=== PATIENT | female | born 1955 | race Caucasian/White ===

== ENCOUNTER 2023-06-24 03:46 | Observation (INO) | payer MEDICARE, SELFPAY ==
[2023-06-24] VITALS (111 sets, daily range): BP systolic 148–228; BP diastolic 66–130; PULSE 66–84; RESP 0–150; TEMP 36.7–36.9; O2SAT 93–100; BMI 44.3; BMI 45.2
--- NOTE | 2023-06-24 03:26 | ECG_ITS ---
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
--- NOTE | 2023-06-24 03:36 | CT_ITS ---
The [address] [address] Patient Name: NICHOLE HOWELL MRN: [id number] date: 1955 Sex: F Assigned Patient Location: ER Current Patient Location: Accession/Order Number: [id number] Exam Date: 06/24/2023 03:48 Report Date: 06/24/2023 04:07 At the request of: ROGELIO GLASGOW Procedure: CT head/brain wo con INDICATION: 67 years old; Female. Dizziness. TECHNIQUE: CT Head (ax/cor/sag reformats). Ionizing radiation dose reduced via iterative reconstruction/FBP blend and body size kV/mA adjustment. Comparison: None FINDINGS: POSTOPERATIVE CHANGES: None. BRAIN PARENCHYMA: No focal lesions. No mass effect. No midline shift or herniation. No intraparenchymal or extra-axial hemorrhage. Subtle low-density in the white matter without mass effect consistent with small vessel ischemic change. VENTRICLES/EXTRA-AXIAL SPACES: Normal for patient's age. SINUSES/MASTOIDS: The visualized sinuses are clear. Mastoid air cells are clear. MSK: No displaced or depressed calvarial fracture. OTHER: No hyperdense intraluminal thrombus. Vascular calcification is seen. CT/CT head/brain wo con IMPRESSION: 1. No acute intracranial abnormality. No hemorrhage or mass effect. 2. Subtle small vessel ischemic changes. 3. Basilar calcification. If there is concern for acute infarction, then further examination with MRI including diffusion imaging would be more sensitive. Electronically authenticated by: JUSTIN AREVALO Date: 06/24/2023 04:07
[2023-06-24 03:46] LABS: Basophils Percent Auto 0.6 % (0.2-2.0); Eosinophils Absolute Auto 0.2 10^3/uL (0.0-0.7); Eosinophils Percent Auto 3.4 % (0.9-7.0); Hematocrit 36.1 % (36.0-48.0); Hemoglobin 11.9 g/dL (12.0-16.0); Immature Granulocytes Abs Auto 0.02 10^3/uL (0.00-0.03); Immature Granulocytes Pct Auto 0.3 % (0.0-0.5); Lymphocytes Absolute Auto 2.7 10^3/uL (1.2-3.8); Lymphocytes Percent Auto 38.9 % (20.5-60.0); Mean Corpuscular Hemoglobin 29.8 pg (26.7-34.0); Mean Corpuscular Volume 90.3 fL (81.0-99.0); Mean Platelet Volume 10.3 fL (9.5-13.5); Monocytes Absolute Auto 0.6 10^3/uL (0.3-0.8); Monocytes Percent Auto 8.3 % (1.7-12.0); Neutrophils Absolute Auto 3.4 10^3/uL (1.4-6.5); Neutrophils Percent Auto 48.5 % (43.0-75.0); Platelet Count 225 10^3/uL (150-450); Red Cell Distribution Width 13.9 % (11.0-15.0)
--- NOTE | 2023-06-24 03:46 | ED.DIZZY1 ---
HPI - Dizziness General Chief Complaint: Dizziness Stated Complaint: LIGHTHEADED HEADACHE Time Seen by Provider: 06/24/23 03:47 Source: patient Mode of arrival: ambulance History of Present Illness HPI Narrative: Have history of A-fib as well as hypertension coming to us with a complaint of light nose that her up from sleep, the patient mentioned that she had no headache no chest pain no nausea no vomiting no other complaint during the day but she noted that at night she woke up with her heart racing She denies any symptoms during the day and she mentioned having dizziness while having those symptoms and she usually will record those symptoms by her Apple Watch Had no chest pain at any time Related Data Home Medications Medication Instructions Recorded Confirmed apixaban 5 mg tablet (Eliquis) 5 mg PO 06/24/23 clotrimazole-betamethasone 1 topical 06/24/23 %-0.05 % lotion losartan 100 mg tablet mg 06/24/23 magnesium oxide 400 mg (241.3 mg mg 06/24/23 magnesium) tablet metoprolol tartrate 25 mg tablet mg 06/24/23 naproxen 500 mg tablet mg 06/24/23 omega-3 acid ethyl esters 1 gram PO 06/24/23 capsule sotalol 120 mg tablet 120 mg 06/24/23 Allergies Allergy/AdvReac Type Severity Reaction Status Date / Time No Known Drug Allergies Allergy Verified 06/24/23 03:16 Review of Systems ROS Status of ROS 10 or more systems reviewed and unremarkable except as noted in history and below Exam Narrative Exam Narrative: Nurses notes and vital signs reviewed and patient is not hypoxic. General: Well-appearing and in no apparent distress. Skin: Warm, dry, no pallor noted. No rash. Head: Normocephalic, atraumatic. Neck: Supple, non-tender. Eye: Pupils are equal, round and EOMI. No scleral icterus. Ears, Nose, Mouth, and Throat: TM are clear, no nasal mucosal hypertrophy. Oral mucosa is moist, no posterior oropharynx erythema, uvula is mid-line Cardiovascular: Regular Rate and Rhythm without murmur, gallop or rub. Respiratory: No accessory muscle use or respiratory distress. Lungs are clear to auscultation, no wheezing, rales or rhonchi Chest Wall: no tenderness Back: No midline thoracic or lumbar vertebral tenderness. No CVA tenderness Musculoskeletal: normal ROM, no calf or popliteal tenderness, no lower extremity edema/swelling GI: Abdomen is soft, non-distended. Normal bowel sounds. No masses appreciated. No tenderness to palpation. No rebound, guarding, or rigidity noted. Neurological: A&O x4. No cranial nerve dysfunction observed. No truncal ataxia. Moves all extremities. Sensation intact. Psychiatric: Cooperative and interactive. Normal mood and affect. Constitutional Vital Signs, click to edit/add: Last Vital Signs Temp 98.1 F 06/24/23 03:12 Pulse 68 06/24/23 06:17 Resp 20 06/24/23 06:17 BP 158/70 H 06/24/23 06:17 Pulse Ox 96 06/24/23 06:17 O2 Del Method Room Air 06/24/23 06:17 Course Vital Signs Vital signs: Vital Signs Temperature 98.1 F 06/24/23 03:12 Pulse Rate 69 06/24/23 03:12 Respiratory Rate 19 06/24/23 03:12 Blood Pressure 167/83 H 06/24/23 03:12 Pulse Oximetry 99 06/24/23 03:12 Oxygen Delivery Method Room Air 06/24/23 03:12 Temperature 98.1 F 06/24/23 03:12 Pulse Rate 68 06/24/23 06:17 Respiratory Rate 20 06/24/23 06:17 Blood Pressure 158/70 H 06/24/23 06:17 Pulse Oximetry 96 06/24/23 06:17 Oxygen Delivery Method Room Air 06/24/23 06:17 MDM - Dizziness MDM Narrative Medical decision making narrative: EKG showing sinus rhythm with a heart rate of [address] elevation or depression The patient CBC and chemistry showed no acute significant pathology the first troponin was 12 repeated after 2 hours the patient troponin went to up to 40 Repeated EKG still showing the patient sinus rhythm with a heart rate of [address] elevation or depression The patient troponin result discussed with Dr. Guerra and he recommended the patient get the stress test as well as the observation in the hospital The patient last stress test was more than 7 years ago and it was negative The patient case discussed with Dr. Mcdaniel and he agreed with above-mentioned plan Lab Data Labs: Lab Results 06/24/23 06/24/23 Range/Units 03:20 05:09 WBC 7.0 (4.0-11.0) 10^3/uL RBC 4.00 L (4.20-5.40) 10^6/uL Hgb 11.9 L (12.0-16.0) g/dL Hct 36.1 (36.0-48.0) % MCV 90.3 (81.0-99.0) fL MCH 29.8 (26.7-34.0) pg MCHC 33.0 (29.9-35.2) g/dL RDW 13.9 (11.0-15.0) % Plt Count 225 (150-450) 10^3/uL MPV 10.3 (9.5-13.5) fL Neut % (Auto) 48.5 (43.0-75.0) % Lymph % (Auto) 38.9 (20.5-60.0) % Wilkin % (Auto) 8.3 (1.7-12.0) % Eos % (Auto) 3.4 (0.9-7.0) % Baso % (Auto) 0.6 (0.2-2.0) % Neut # (Auto) 3.4 (1.4-6.5) 10^3/uL Lymph # (Auto) 2.7 (1.2-3.8) 10^3/uL Wilkin # (Auto) 0.6 (0.3-0.8) 10^3/uL Eos # (Auto) 0.2 (0.0-0.7) 10^3/uL Baso # (Auto) 0.0 (0.0-0.1) 10^3/uL Abs Immat Gran (auto) 0.02 (0.00-0.03) 10^3/uL Imm/Tot Granulo (auto) 0.3 (0.0-0.5) % PT 10.3 (9.0-11.6) sec INR 0.97 Sodium 141 (136-145) mmol/L Potassium 4.4 (3.5-5.1) mmol/L Chloride 103 (98-107) mmol/L Carbon Dioxide 27.9 (21.0-32.0) mmol/L Anion Gap 14.5 BUN 15.0 (7.0-18.0) mg/dL Creatinine 0.91 (0.55-1.02) mg/dL Est GFR ( Amer) >60 (>=60) Est GFR (Non-Af Amer) >60 (>=60) BUN/Creatinine Ratio 16.5 Glucose 118 H (74-106) mg/dL Calcium 8.6 (8.5-10.1) mg/dL Magnesium 2.1 (1.8-2.4) mg/dL Total Bilirubin 0.4 (0.2-1.0) mg/dL AST 20 (15-37) U/L ALT 45 (14-59) U/L Alkaline Phosphatase 71 (46-116) U/L Troponin I High Sens 12.0 40.2 (4.0-51.3) pg/mL Total Protein 7.2 (6.4-8.2) g/dL Albumin 3.5 (3.4-5.0) g/dL Globulin 3.7 g/dL Albumin/Globulin Ratio 0.9 Discharge Plan Discharge Chief Complaint: Dizziness Clinical Impression: Dizziness, Elevated troponin Patient Disposition: Admitted As Inpatient Time of Disposition Decision: 06:33 Condition: Good
[2023-06-24 04:04] LABS: Alanine Aminotransferase 45 U/L (14-59); Albumin Globulin Ratio 0.9; Albumin Level 3.5 g/dL (3.4-5.0); Alkaline Phosphatase 71 U/L (46-116); Anion Gap 14.5; Aspartate Amino Transferase 20 U/L (15-37); BUN Creatinine Ratio 16.5; Bilirubin Total 0.4 mg/dL (0.2-1.0); Calcium 8.6 mg/dL (8.5-10.1); Carbon Dioxide 27.9 mmol/L (21.0-32.0); Chloride 103 mmol/L (98-107); Estimated GFR (African America >60 (>=60); Estimated GFR (Non-African Ame >60 (>=60); Globulin 3.7 g/dL; Glucose 118 mg/dL (74-106); Magnesium 2.1 mg/dL (1.8-2.4); Potassium 4.4 mmol/L (3.5-5.1); Sodium 141 mmol/L (136-145); Total Protein 7.2 g/dL (6.4-8.2)
[2023-06-24 04:18] LABS: INR 0.97; Prothrombin Time 10.3 sec (9.0-11.6)
[2023-06-24 05:58] LABS: Troponin I High Sensitivity 40.2 pg/mL (4.0-51.3)
--- NOTE | 2023-06-24 06:10 | ECG_ITS ---
The 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
[2023-06-24] MEDS: KETOROLAC TROMETHAMINE 30 MG/ML VIAL 15 MG IVP (06:30)
[2023-06-24] MEDS: NITROGLYCERIN 0.4 MG BOTTLE PO ×2 (06:30→09:01)
[2023-06-24] MEDS: ONDANSETRON PF 4 MG/2 ML VIAL IV (06:30)
--- NOTE | 2023-06-24 06:55 | CA_ITS ---
Patient: NICHOLE HOWELL Exam Date: 06/24/2023 : 1955 Gender:F Ordering : DR Mau Mcdaniel . Admission #: [id number] Family : Order #: [id number] CLICK HERE TO VIEW EXAM ECHOCARDIOGRAM REPORT PROCEDURE: CA ECHO DOPPLER COMPLETE INDICATIONS: Dyspnea COMPARISON: None. DESCRIPTION: COMPLETE ECHOCARDIOGRAM Real-time transthoracic echocardiography with 2D, M-mode, spectral and color flow Doppler performed. QUALITY: Technical quality was good. LEFT VENTRICLE: Normal chamber size. Mild concentric left ventricular hypertrophy. LV EF: Global left ventricular systolic function is hyperdynamic. Calculated left ventricular ejection fraction is 70%. DIASTOLIC: Normal diastolic function. ATRIAL SEPTUM: Inadequately seen. LEFT ATRIUM: Mild dilatation. RIGHT ATRIUM: Mild dilatation. RIGHT VENTRICLE: Normal chamber size. Normal right ventricular systolic function. TRICUSPID VALVE: Normal mobility and thickness. No stenosis with trivial regurgitation. No evidence of pulmonary hypertension. RVSP 34mmHg MITRAL VALVE: Normal mobility and thickness. No evidence of mitral valve stenosis. There is no mitral annular calcification. Trivial mitral regurgitation. AORTIC VALVE: Normal trileaflet appearance. No visible sclerosis. Normal leaflet mobility. No evidence of aortic valve stenosis. No aortic regurgitation. AORTIC ROOT: Normal diameter and appearance. PULMONIC VALVE: Normal thickness and mobility. No stenosis. Mild regurgitation. PERICARDIUM: Anterior free space; trivial effusion versus fat pad. IVC: Not well visualized. CONCLUSION: 1. Global left ventricular systolic function is hyperdynamic; visually estimated ejection fraction is 65 to 70% 2. Mild left ventricular hypertrophy 3. Normal diastolic function 4. Biatrial enlargement 5. The right ventricle is normal in size and systolic function 6. Mild pulmonic regurgitation 7. Anterior free space; trivial effusion versus fat Adult Echocardiography Procedure Report Left Ventricle LVEDD (3.7 - 5.6 cm): 4.21 cm LVESD (2.2 - 4.0 cm): 2.99 cm LVIVS thickness (0.6 - 1.2 cm): 1.09 cm LVPW thickness (0.5 - 1.0 cm): 1.12 cm e': 0.10 m/s E - e': 7.40 LVOT Max Gradient: 4.31 mm[Hg] LVOT Area (cm2): 1.04 m/s Peak Velocity (LVOT): 1.04 m/s Mean Velocity (LVOT): 0.70 m/s LVOT Diameter 2.02 cm Left Ventricular Ejection Fraction: 70.15 % Left Atrium LA Volume Index (2D A2C): 34.95 ml/m2 Left Atrium Systolic Dimension: 3.31 cm Mitral Valve MV E to A Ratio: 1.10, 1.02 Mitral Valve A-Wave Peak Velocity: 0.70 m/s Mitral Valve E-Wave Peak Velocity: 0.74 m/s Right Ventricle RV Internal Diastolic Dimension: 3.39 cm Aorta AO Root Diam: 2.98 cm Ascending Ao Diam: 2.69 cm Aortic Valve AoV Area (Peak Abe): 2.14 cm2, 2.14 cm2 AoV Area (VTI): 2.44 cm2, 2.44 cm2 Peak Velocity(Antegrade Flow): 1.56 m/s Peak Gradient(Antegrade Flow): 9.71 mm[Hg] Mean Velocity(Antegrade Flow): 1.02 m/s Mean Gradient(Antegrade Flow): 4.81 mm[Hg] Velocity Time Integral: 31.30 cm Tricuspid Valve Peak Velocity (Regurgitant Flow): 1.57 m/s, 1.60 m/s, 2.82 m/s Pulmonic Valve Mean Gradient: 3.41 mm[Hg], 3.52 mm[Hg] Mean Velocity: 0.86 m/s, 0.87 m/s Peak Velocity: 1.29 m/s Peak Gradient: 6.52 mm[Hg], 6.89 mm[Hg] Right Atrium Right Atrium Systolic Pressure: 64.81 ml, 64.81 ml Dictated by: Fer Leal M.D. on 06/25/2023 at 09:45 Approved by: Fer Leal M.D. on 06/25/2023 at 09:49
--- NOTE | 2023-06-24 06:55 | PC.NURSE ---
Report to [facility] [employer] [facility].
[2023-06-24 08:26] LABS: Troponin I High Sensitivity 42.3 pg/mL (4.0-51.3)
--- NOTE | 2023-06-24 08:38 | CM.NOTE ---
Rounds made with Dr. Mcdaniel, pt will have stress test today. Possible discharge this afternoon based on results of testing.
--- NOTE | 2023-06-24 08:43 | ECG_ITS ---
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1955 Requested By: YARED JAMES Order Number: [id number] Reading MD: YARED JAMES Measurements Intervals [place] Rate: 70 P: 52 MD: 166 QRS: -12 QRSD: 96 T: -4 QT: 409 QTc: 441 Interpretive Statements SINUS RHYTHM Non-Specific T wave inversion in III LOW QRS VOLTAGE IN PRECORDIAL LEADS [QRS DEFLECTION < 1.0 mV IN CHEST LEADS] MINIMAL VOLTAGE CRITERIA FOR LVH, CONSIDER NORMAL VARIANT [MEETS CRITERIA IN ONE OF: R(aVL), S(V1), R(V5), R(V5/V6)+S(V1)] POSSIBLE ANTERIOR MYOCARDIAL INFARCTION [30 ms Q WAVE IN V3/V4, OR R < 0.2 mV IN V4], PROBABLY OLD Compared to ECG 06/24/2023 06:16:10 Low QRS voltage now present Myocardial infarct finding now present T-wave abnormality no longer present Electronically Signed On 06-25-2023 5:56:46 EDT by YARED JAMES
--- NOTE | 2023-06-24 09:09 | P.HP_ITS ---
H&P: HPI History of Present Illness Chief complaint: LIGHTHEADED HEADACHE/DIZZINESS/ELEVATED TROPONIN Narrative: Patient was awakened with acute onset of chest heaviness. She does have a history of atrial fibrillation. She felt that that was activated as well. The episode lasted a few minutes. She called 911 and presented to the emergency room. In the emergency room was in normal sinus rhythm. Trended troponins went up 30 points from the first of the second case was discussed with cardiology who recommended observation admission for cardiac evaluation. Patient was admitted for stress testing and echocardiogram. Patient has had similar episodes but short lasting within the last several weeks. She did not discuss these with her apprentice technician. Review of Systems ROS Status of ROS 10 or more systems reviewed and unremarkable except as noted in history and below [facility] Medical History (Updated 06/24/23 @ 09:12 by Mau Mcdaniel MD) Surgical History (Updated 06/24/23 @ 07:27 by Fiordaliza Dobbs) Family History (Updated 06/24/23 @ 07:29 by Fiordaliza Dobbs) Mother Family history of myocardial infarction Family history of hypertension Father Family history of hypertension Brother Family history of hypertension Meds Home Medications and Allergies Home Medications Medication Instructions Recorded Confirmed Type apixaban 5 mg tablet (Eliquis) 5 mg PO 06/24/23 History clotrimazole-betamethasone 1 topical 06/24/23 History %-0.05 % lotion losartan 100 mg tablet mg 06/24/23 History magnesium oxide 400 mg (241.3 mg mg 06/24/23 History magnesium) tablet metoprolol tartrate 25 mg tablet mg 06/24/23 History naproxen 500 mg tablet mg 06/24/23 History omega-3 acid ethyl esters 1 gram PO 06/24/23 History capsule sotalol 120 mg tablet 120 mg 06/24/23 History Allergies Allergy/AdvReac Type Severity Reaction Status Date / Time No Known Drug Allergies Allergy Verified 06/24/23 03:16 Exam Constitutional Vital Signs, click to edit/add: Last Vital Signs Temp 98.0 F 06/24/23 07:35 Pulse 73 06/24/23 08:08 Resp 16 06/24/23 07:35 BP 164/86 H 06/24/23 09:05 Pulse Ox 97 06/24/23 07:35 O2 Del Method Room Air 06/24/23 07:35 Documenting provider has reviewed patient's vital signs: yes Common normals: no apparent distress Chest Common normals: inspection of chest normal Respiratory Common normals: normal respiratory effort, no retractions and clear to auscultation bilaterally Cardio Common normals: regular rate and no murmurs GI Common normals: Normal to inspection, nondistended, normoactive bowel sounds present Extremity Common normals: normal to inspection, full ROM and normal capillary refill Neuro Common normals: oriented x3 and CN's II-XII intact bilaterally Results Labs Labs: Short CBC 06/24/23 Range/Units 03:20 WBC 7.0 (4.0-11.0) 10^3/uL Hgb 11.9 L (12.0-16.0) g/dL Hct 36.1 (36.0-48.0) % Plt Count 225 (150-450) 10^3/uL BMP 06/24/23 03:20 Sodium 141 Potassium 4.4 Chloride 103 Carbon Dioxide 27.9 BUN 15.0 Creatinine 0.91 Glucose 118 H Calcium 8.6 Liver Function 06/24/23 Range/Units 03:20 Total Bilirubin 0.4 (0.2-1.0) mg/dL AST 20 (15-37) U/L ALT 45 (14-59) U/L Alkaline Phosphatase 71 (46-116) U/L Albumin 3.5 (3.4-5.0) g/dL Assessment and Plan Assessment and Plan (1) Afib: (2) Sleep apnea: (3) Chest pain: (4) Hypertension: Plan Uncontrolled hypertension with increasing episodes of chest pressure with activated atrial fibrillation. She has been in and out of atrial fibrillation. She is currently anticoagulated. With Eliquis. Presented to the emergency room with chest pressure that was more severe than previous and lasted slightly longer than previous. By the time she presented the emergency room the chest pressure had resolved. Her atrial fibrillation has also resolved. Her troponins were trended and from 10-40, with the increase of 30 points was recommended observation with cardiac evaluation with stress testing and echocardiogram from cardiology's. If cardiac work-up all negative possible discharge later today. Encouraged increased visit with apprentice technician her next visit 4 months from now Sleep apnea-if she is going to need hospitalization longer than I would recommend she bring her home machine. Uncontrolled hypertension-we will review medications likely increase overall
[2023-06-24] MEDS: HYDRALAZINE HCL 20 MG/ML VIAL 10 MG IVP ×2 (10:40→19:28)
--- NOTE | 2023-06-24 12:33 | P.STRESS_ITS ---
Stress Test Stress Test Allergies Allergy/AdvReac Type Severity Reaction Status Date / Time No Known Drug Allergies Allergy Verified 06/24/23 03:16 Requesting physician: Mau Mcdaniel Procedure: Exercise stress test General Information: Reason for Stress Test: Chest pain Cardiac History and Risk Factors: History of afib & hypertension. Mother had [place]. Resting 12 - Lead Electrocardiogram: Rate & rhythm: Normal at a rate of 77. [place]: Normal T-waves: Inverted in III ST-segments: Normal orientation This EKG is essentially unchanged from EKG obtained earlier this morning @ 03:13 I did find that an additional EKG was done ~2 minutes before the resting EKG which noted the patient developed bradycardia with up to 2 second pauses along with a couplet. Stress Test: Protocol: Ishan protocol was followed. Exercise capacity: Poor exercise capacity. Total exercise time of 2 minutes 3 seconds reached Ishan stage 1 at 1.7MPH, 10% grade, & 4.6 METs. Blood pressure: Initial: 170/96, Maximum: 208/96, Recovery: 164/92 Rate & rhythm: Patient remained in sinus rhythm during the exercise prortion.? The maximum heart rate was 131, which was 85% of the maximum predicted heart rate 154. ~20 seconds into recovery, there was a period of SVT/afib with RVR into the 160s, and a second episode @ ~1:26 into recovery with maximum rate 181. The patient spontaneously converted to NSR without intervention on our part. PVCs with [address]-segments & T-waves: There were no T-wave changes and no ST-segment changes when compared to the baseline EKG. Patient response/symptoms: There were no symptoms similar to the chief complaint. She did complain of dyspnea. Interpretation: This is a normal exercise test based on lack of T wave or ST segment changes. No reproducible chest pain. She did have 2 episodes of afib with RVR during the recovery phase and episode of bradycardia with a couplet prior to initiation of the study. Dixon Treadmill Score is 2 which is a moderate risk category. Clinical correlation is required.
[2023-06-24] MEDS: ACETAMINOPHEN 500 MG TABLET 1000 MG PO ×2 (12:57→19:33)
[2023-06-24] MEDS: SOTALOL HCL 80 MG TABLET 120 MG PO (15:45)
[2023-06-24] MEDS: PANTOPRAZOLE SODIUM 40 MG VIAL IV (15:45)
== END 2023-06-24 20:14 | disposition short-term general hospital (02) ==
LOC: ER 06:48 → MS 12:33 → ICU 15:47
PROVIDERS: Admitting Provider Family Medicine; Emergency Provider Emergency Medicine; PCP Family Medicine; Visit Provider Family Medicine
DX: R07.89 Other chest pain (principal); I48.91 Unspecified atrial fibrillation; I10 Essential (primary) hypertension; R77.8 Other specified abnormalities of plasma proteins; Z79.01 Long term (current) use of anticoagulants
CPT/HCPCS: 36415; 70450; 80053; 83735; 84484; 85025; 85610; 93005; 93017; 93306; 94761; 96374; 96375; 96376; 99285; G0378

== ENCOUNTER 2023-08-03 09:38 | Emergency (ER) | payer MEDICARE, SELFPAY ==
[2023-08-03 09:40] VITALS: BP 136/79; PULSE 103; RESP 16; TEMP 36.6; O2SAT 98; BMI 24.6
--- NOTE | 2023-08-03 09:57 | ECG_ITS ---
The 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1955 Requested By: Order Number: [id number] Reading MD: YARED JAMES Measurements Intervals [place] Rate: 95 P: -86548 IA: -53120 QRS: -7 QRSD: 90 T: 0 QT: 354 QTc: 407 Interpretive Statements 1210 Atrial fibrillation [address] depression, probably digitalis effect [address] & Twave abnormality, probably digitalis effect 9150 abnormal ECG Compared to ECG 06/24/2023 09:50:09 ST (T wave) deviation now present Sinus rhythm no longer present T-wave abnormality no longer present Myocardial infarct finding no longer present Electronically Signed On 08-05-2023 5:28:09 EDT by YARED JAMES
--- NOTE | 2023-08-03 09:57 | XR_ITS ---
The [address] [address] Patient Name: NICHOLE HOWELL MRN: [id number] date: 1955 Sex: F Assigned Patient Location: ER Current Patient Location: ED.MAIN Accession/Order Number: [id number] Exam Date: 08/03/2023 10:10 Report Date: 08/03/2023 10:47 At the request of: LIVAN CAT Procedure: XR chest 1V EXAMINATION: XR chest 1V HISTORY: tachycardia , atrial fibrillation COMPARISON: No relevant comparison available. FINDINGS: LUNGS: No significant pulmonary parenchymal abnormalities. VASCULATURE: No increased pulmonary vasculature. PLEURA: No pneumothorax, effusion, or pleural thickening. CARDIAC: No cardiomegaly or cardiac silhouette abnormality. MEDIASTINUM: No visible mass or adenopathy. BONES: No fracture or visible bone lesion. OTHER: Negative. XR/XR chest 1V IMPRESSION: 1. No acute cardiopulmonary process. Electronically authenticated by: MIGUEL PRINCE Date: 08/03/2023 10:47
[2023-08-03] MEDS: 0.9 % SODIUM CHLORIDE 1,000 ML 999 ML IV (10:10)
[2023-08-03 10:26] LABS: Basophils Percent Auto 0.8 % (0.2-2.0); Eosinophils Absolute Auto 0.1 10^3/uL (0.0-0.7); Eosinophils Percent Auto 2.1 % (0.9-7.0); Hematocrit 40.5 % (36.0-48.0); Hemoglobin 13.6 g/dL (12.0-16.0); Immature Granulocytes Abs Auto 0.02 10^3/uL (0.00-0.03); Immature Granulocytes Pct Auto 0.4 % (0.0-0.5); Lymphocytes Percent Auto 41.9 % (20.5-60.0); Mean Corpuscular HGB Conc 33.6 g/dL (29.9-35.2); Mean Corpuscular Hemoglobin 29.6 pg (26.7-34.0); Mean Platelet Volume 10.7 fL (9.5-13.5); Monocytes Absolute Auto 0.5 10^3/uL (0.3-0.8); Monocytes Percent Auto 9.4 % (1.7-12.0); Neutrophils Absolute Auto 2.2 10^3/uL (1.4-6.5); Neutrophils Percent Auto 45.4 % (43.0-75.0); Platelet Count 256 10^3/uL (150-450); Red Cell Distribution Width 13.4 % (11.0-15.0); White Blood Count 4.8 10^3/uL (4.0-11.0)
--- NOTE | 2023-08-03 10:38 | ED.ARRPALP1 ---
HPI - Arrhythmia/Palpitations General Chief Complaint: Arrhythmia/Palpitations Stated Complaint: AFIB Time Seen by Provider: 08/03/23 09:40 Source: patient Mode of arrival: ambulance Limitations: no limitations History of Present Illness HPI narrative: Patient woke up feeling dizzy. She has atrial fibrillation and has been going in and out of AFib for the last 6 weeks. She checked her HR at home and it was 115bpm. EMS reported HR 140s and gave 10mg Cardizem IV. Now her HR has improved. 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 Because of the dizziness this morning, she did not take any of her home meds. No associated chest pain or shortness of breath. No recent injury, illness, fever, chills, vomiting or diarrhea. She told me that she has been aggressively cutting down her calorie intake daily and has lost almost 20 pounds in 5 weeks. Related Data Home Medications Medication Instructions Recorded Confirmed apixaban 5 mg tablet (Eliquis) 5 mg PO BID 06/24/23 08/03/23 calcium carbonate 500 mg calcium 500 mg PO DAILY 06/24/23 08/03/23 (1,250 mg) chewable tablet (Calcium 500) cetirizine 10 mg tablet (24Hour 10 mg PO DAILY 06/24/23 08/03/23 Allergy) clotrimazole-betamethasone 1 1 applic topical BID PRN irritated 06/24/23 %-0.05 % lotion area esomeprazole magnesium 20 mg 40 mg PO DAILY 06/24/23 08/03/23 capsule,delayed release (Nexium) lutein 10 mg tablet 10 mg PO DAILY 06/24/23 08/03/23 magnesium oxide 400 mg (241.3 mg 400 mg PO BID 06/24/23 08/03/23 magnesium) tablet metoprolol tartrate 25 mg tablet 25 mg PO DAILY PRN PALPITATIONS 06/24/23 08/03/23 naproxen 500 mg tablet 500 mg PO .QOD PRN pain 06/24/23 06/24/23 omega-3 acid ethyl esters 1 gram 2 cap PO BID 06/24/23 08/03/23 capsule sotalol 120 mg tablet 120 mg PO .COMPLEX 06/24/23 08/03/23 amlodipine 2.5 mg tablet 2.5 mg PO DAILY 08/03/23 08/03/23 isosorbide mononitrate 30 mg 30 mg PO BEDTIME 08/03/23 08/03/23 tablet,extended release 24 hr triamterene 37.5 1 tab PO DAILY 08/03/23 08/03/23 mg-hydrochlorothiazide 25 mg tablet Allergies Allergy/AdvReac Type Severity Reaction Status Date / Time No Known Drug Allergies Allergy Verified 06/24/23 03:16 [facility] Medical History (Updated 08/03/23 @ 11:17 by Livan Cat) Afib ?I48.91 - Unspecified atrial fibrillation (ICD-10) Sleep apnea ?G47.30 - Sleep apnea, unspecified (ICD-10) Surgical History (Updated 06/24/23 @ 07:27 by Fiodraliza Dobbs) H/O cataract removal with insertion of prosthetic lens ?Z98.49 - Cataract extraction status, unspecified eye (ICD-10) ?Z96.1 - Presence of intraocular lens (ICD-10) S/P ablation of atrial fibrillation ?Z98.890 - Other specified postprocedural states (ICD-10) ?Z86.79 - Personal history of other diseases of the circulatory system (ICD-10) Family History (Updated 06/24/23 @ 07:29 by Fiordaliza Dobbs) Mother Family history of myocardial infarction Family history of hypertension Father Family history of hypertension Brother Family history of hypertension Social History Smoking status: Never smoker Exam Narrative Exam Narrative: Nurses notes and vital signs reviewed and patient is not hypoxic. afebrile General: Well-appearing and in no apparent distress. Skin: Warm, dry, no pallor noted. Eye: Pupils are equal, round and EOMI. No scleral icterus. Cardiovascular: Rate controlled atrial fibrillation without murmur, gallop or rub. Respiratory: No accessory muscle use or respiratory distress. Lungs are clear to auscultation, no wheezing, rales or rhonchi Musculoskeletal: normal ROM, no calf or popliteal tenderness, no lower extremity edema/swelling GI: Abdomen is soft, non-distended. Normal bowel sounds. No tenderness to palpation. No rebound, guarding, or rigidity noted. Neurological: A&O x4. No cranial nerve dysfunction observed. No truncal ataxia. Moves all extremities. Sensation intact. Psychiatric: Cooperative and interactive. Normal mood and affect. Constitutional Vital Signs, click to edit/add: Last Vital Signs Temp 97.8 F 08/03/23 09:40 Pulse 103 H 08/03/23 09:40 Resp 16 08/03/23 09:40 BP 136/79 08/03/23 09:40 Pulse Ox 98 08/03/23 09:40 O2 Del Method Room Air 08/03/23 09:40 Course Vital Signs Vital signs: Vital Signs Temperature 97.8 F 08/03/23 09:40 Pulse Rate 103 H 08/03/23 09:40 Respiratory Rate 16 08/03/23 09:40 Blood Pressure 136/79 08/03/23 09:40 Pulse Oximetry 98 08/03/23 09:40 Oxygen Delivery Method Room Air 08/03/23 09:40 Temperature 97.8 F 08/03/23 09:40 Pulse Rate 103 H 08/03/23 09:40 Respiratory Rate 16 08/03/23 09:40 Blood Pressure 136/79 08/03/23 09:40 Pulse Oximetry 98 08/03/23 09:40 Oxygen Delivery Method Room Air 08/03/23 09:40 MDM - Arrhythmia/Palpitations MDM Narrative Medical decision making narrative: Patient was placed on cafeteria monitor and EKG obtained. Blood drawn and sent for evaluation. Chest x-ray obtained. Blood tests were unremarkable with the exception of mildly elevated BUN and creatinine at 19/1.05. CBC, electrolytes, troponin, BNP and lactate were all negative. Blood cultures were obtained to the patient's tachycardia and the result is pending. Chest x-ray unremarkable per radiologist. Patient's dizziness abided after her HR normalized. She remains in rate controlled atrial fibrillation for most of her time in the ED. She converted to NSR spontaneously as her results were finalized. She takes Eliquis daily. She was informed of results, given reassurance and was discharged home with recommendations to take her meds as scheduled. We discussed appropriate and safe was to reduce weight. 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 ED return if worse. Lab Data Attestation: I reviewed the patient's lab results. Labs: Lab Results 08/03/23 Range/Units 10:10 WBC 4.8 (4.0-11.0) 10^3/uL RBC 4.60 (4.20-5.40) 10^6/uL Hgb 13.6 (12.0-16.0) g/dL Hct 40.5 (36.0-48.0) % MCV 88.0 (81.0-99.0) fL MCH 29.6 (26.7-34.0) pg MCHC 33.6 (29.9-35.2) g/dL RDW 13.4 (11.0-15.0) % Plt Count 256 (150-450) 10^3/uL MPV 10.7 (9.5-13.5) fL Neut % (Auto) 45.4 (43.0-75.0) % Lymph % (Auto) 41.9 (20.5-60.0) % [place] % (Auto) 9.4 (1.7-12.0) % Eos % (Auto) 2.1 (0.9-7.0) % Baso % (Auto) 0.8 (0.2-2.0) % Neut # (Auto) 2.2 (1.4-6.5) 10^3/uL Lymph # (Auto) 2.0 (1.2-3.8) 10^3/uL [place] # (Auto) 0.5 (0.3-0.8) 10^3/uL Eos # (Auto) 0.1 (0.0-0.7) 10^3/uL Baso # (Auto) 0.0 (0.0-0.1) 10^3/uL Abs Immat Gran (auto) 0.02 (0.00-0.03) 10^3/uL Imm/Tot Granulo (auto) 0.4 (0.0-0.5) % Sodium 138 (136-145) mmol/L Potassium 3.8 (3.5-5.1) mmol/L Chloride 101 (98-107) mmol/L Carbon Dioxide 27.2 (21.0-32.0) mmol/L Anion Gap 13.6 BUN 19.0 H (7.0-18.0) mg/dL Creatinine 1.05 H (0.55-1.02) mg/dL Est GFR ( Amer) >60 (>=60) Est GFR (Non-Af Amer) 52 L (>=60) BUN/Creatinine Ratio 18.1 Glucose 135 H (74-106) mg/dL Lactate 1.7 (0.4-2.0) mmol/L Calcium 9.0 (8.5-10.1) mg/dL Magnesium 2.1 (1.8-2.4) mg/dL Troponin I High Sens 5.2 (4.0-51.3) pg/mL NT-Pro-B Natriuret Pep 250.0 (<=900.0) pg/mL Imaging Data Chest x-ray: Radiologist's impression: Patient Name: NICHOLE HOWELL MRN: [id number] date: 1955 Sex: F Assigned Patient Location: ER Current Patient Location: ED.MAIN Accession/Order Number: [id number] Exam Date: 08/03/2023 10:10 Report Date: 08/03/2023 10:47 At the request of: LIVAN CAT Procedure: XR chest 1V EXAMINATION: XR chest 1V HISTORY: tachycardia , atrial fibrillation COMPARISON: No relevant comparison available. FINDINGS: LUNGS: No significant pulmonary parenchymal abnormalities. VASCULATURE: No increased pulmonary vasculature. PLEURA: No pneumothorax, effusion, or pleural thickening. CARDIAC: No cardiomegaly or cardiac silhouette abnormality. MEDIASTINUM: No visible mass or adenopathy. BONES: No fracture or visible bone lesion. OTHER: Negative. IMPRESSION: 1. No acute cardiopulmonary process. Electronically authenticated by: MIGUEL PRINCE Date: 08/03/2023 10:47 ECG Data Interpretation: EKG interpretation: Emergency Department physician interpretation. Atrial fibrillation at 95bpm. Non-specific ST changes, no ST segment elevation or depression. REPEAT EKG @ 1115 - EKG interpretation: Emergency Department physician interpretation. Normal sinus rhythm at 58bpm. low QRS in chest leads, normal intervals and no ST segment elevation or depression. Discharge Plan Discharge Chief Complaint: Arrhythmia/Palpitations Clinical Impression: Atrial fibrillation Patient Disposition: Home, Self-Care Time of Disposition Decision: 11:17 Prescriptions / Home Meds: No Action clotrimazole-betamethasone 1-0.05 % lotion 1 applic TOPICAL BID PRN (Reason: irritated area) Patient Comments: LAST FILLED 08/01 sotalol 120 mg tablet 120 mg PO .COMPLEX Patient Comments: 1 in the AM, 1/2 in afternoon, 1 in evening Rx Instructions: 120 mg orally 1 whole tablet morning and night. Half tablet in the afternoon; magnesium oxide 400 mg (241.3 mg magnesium) tablet 400 mg PO BID naproxen 500 mg tablet 500 mg PO .QOD PRN (Reason: pain) metoprolol tartrate 25 mg tablet 25 mg PO DAILY PRN (Reason: PALPITATIONS) Rx Instructions: NEEDED FOR PALPITATIONS LASTING LONGER THAN 15 MINUTES omega-3 acid ethyl esters 1 gram capsule 2 cap PO BID Eliquis 5 mg tablet 5 mg PO BID calcium carbonate [Calcium 500] 500 mg calcium (1,250 mg) tablet,chewable 500 mg PO DAILY cetirizine [24Hour Allergy] 10 mg tablet 10 mg PO DAILY esomeprazole magnesium [Nexium] 20 mg capsule,delayed release(DR/EC) 40 mg PO DAILY lutein 10 mg tablet 10 mg PO DAILY Rx Instructions: give with meal/snack isosorbide mononitrate 30 mg tablet extended release 24 hr 30 mg PO BEDTIME amlodipine 2.5 mg tablet 2.5 mg PO DAILY triamterene-hydrochlorothiazid 37.5-25 mg tablet 1 tab PO DAILY Instructions: A-fib (Atrial Fibrillation) (ED) Stand Alone Forms: Portal Instructions Referrals: PURA TSAI [Primary Care Provider] - 1 week
[2023-08-03 10:51] LABS: Lactate/Lactic Acid 1.7 mmol/L (0.4-2.0)
[2023-08-03 10:56] LABS: Anion Gap 13.6; BUN Creatinine Ratio 18.1; Carbon Dioxide 27.2 mmol/L (21.0-32.0); Chloride 101 mmol/L (98-107); Estimated GFR (African America >60 (>=60); Estimated GFR (Non-African Ame 52 (>=60); Glucose 135 mg/dL (74-106); Magnesium 2.1 mg/dL (1.8-2.4); Potassium 3.8 mmol/L (3.5-5.1); Sodium 138 mmol/L (136-145); Troponin I High Sensitivity 5.2 pg/mL (4.0-51.3)
--- NOTE | 2023-08-03 11:18 | ECG_ITS ---
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
== END 2023-08-03 11:32 | disposition home or self-care (01) ==
PROVIDERS: Emergency Provider Emergency Medicine; PCP Family Medicine
DX: I48.91 Unspecified atrial fibrillation (principal); Z79.01 Long term (current) use of anticoagulants; Z79.899 Other long term (current) drug therapy; G47.30 Sleep apnea, unspecified; Z98.49 Cataract extraction status, unspecified eye; Z96.1 Presence of intraocular lens; Z98.890 Other specified postprocedural states
CPT/HCPCS: 36415; 71045; 80048; 83605; 83735; 83880; 84484; 85025; 87040; 93005; 99285

== ENCOUNTER 2024-03-21 10:57 | Emergency (ER) | payer OTHER, MEDICARE, SELFPAY ==
[2024-03-21 11:03] VITALS: BP 175/86; PULSE 59; TEMP 36.6; O2SAT 96; BMI 41.2
[2024-03-21 11:16] VITALS: O2SAT 98
--- NOTE | 2024-03-21 11:37 | CT_ITS ---
The [address] [address] Patient Name: NICHOLE HOWELL MRN: [id number] date: 1955 Sex: F Assigned Patient Location: ER Current Patient Location: ER Accession/Order Number: [id number] Exam Date: 03/21/2024 12:27 Report Date: 03/21/2024 12:52 At the request of: NAIF DEONDRE Procedure: CT head/brain wo con EXAM: CT head/brain wo con HISTORY: trauma COMPARISON: 06/24/2023 TECHNIQUE: Multiple thin computed tomograms of the head were obtained, with sagittal and coronal reconstructions. Radiation reduction technique and algorithms were utilized in the study. FINDINGS: The ventricles are borderline enlarged, the lateral ventricles are symmetric and the third ventricle is in the midline. The sylvian fissures and cortical sulci are unremarkable. There is no evidence of an intracranial hemorrhage, mass lesion or apparent acute infarct. 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 Slight patchy diminished attenuation is seen in the deep white matter surrounding the ventricles. The cerebellum and visualized brainstem are intact. The visualized paranasal sinuses are clear. The middle ears are aerated. Soft tissue is seen in each external auditory canal. The mastoid sinuses are clear. There is no apparent acute skull fracture. CT/CT head/brain wo con IMPRESSION: There is no evidence of an intracranial hemorrhage, mass lesion or apparent acute infarct. Mild or early atrophy is present. Slight patchy diminished attenuation in the periventricular deep white matter indicates small vessel ischemic change. The paranasal sinuses are clear. The soft tissues seen in each external auditory canal are presumably cerumen, and direct visualization is recommended to verify this impression. There is no evidence of a skull fracture. Overall, there've been no significant interval changes. Electronically authenticated by: GONZALO WYNNE Date: 03/21/2024 12:52
--- NOTE | 2024-03-21 11:38 | XR_ITS ---
[address] [address] Patient Name: NICHOLE HOWELL MRN: [id number] date: 1955 Sex: F Assigned Patient Location: ER Current Patient Location: ER Accession/Order Number: [id number] Exam Date: 03/21/2024 12:33 Report Date: 03/21/2024 12:50 At the request of: NAIF MENDOSA Procedure: XR shoulder RT min 2V PROCEDURE: XR shoulder RT min 2V COMPARISON: None. HISTORY: fall FINDINGS: BONES:No acute fracture or dislocation. Moderate degenerative changes of the glenohumeral and acromioclavicular joints with marginal osteophyte formation SOFT TISSUES:Negative. No visible soft tissue swelling. EFFUSION:None visible. OTHER: Negative. XR/XR shoulder RT min 2V IMPRESSION: Osteoarthritis Electronically authenticated by: ELISABET ZALDIVAR Date: 03/21/2024 12:50
[2024-03-21] MEDS: ACETAMINOPHEN 500 MG TABLET PO (11:41)
--- NOTE | 2024-03-21 20:14 | ED_ITS ---
HPI HPI - General Adult General Chief complaint: Fall Stated complaint: FALL Time Seen by Provider: 03/21/24 11:37 Source: patient Mode of arrival: walk-in Limitations: no limitations History of Present Illness HPI narrative: Patient is a 68-year-old female who is presenting to the ER after a injury and a mechanical fall.Patient says that she tripped on uneven sidewalk, falling forward.Patient tried to catch herself with her hands, she has minimal abrasions to the palms of bilateral hands.Patient hit her lower chin on the cement as well, she has some superficial abrasions to her chin.Patient is on Eliquis. Patient has minimal headache. No neck pain. She is also having right mid humerus pain.No right shoulder pain, no right elbow pain. She is right-hand dominant. Daughter Is at bedside.No chest pain, shortness of breath, back pain, abdominal pain, nausea or vomiting. All systems are negative except as noted/marked. All systems reviewed and otherwise negative. Nurses note and vital signs reviewed and patient is not hypoxic. General: The patient appears well and in no apparent distress. Patient is resting comfortably on cart. Patient is not toxic, lethargic, or listless Skin: Warm, dry, no pallor noted. There is no rash noted. No petechiae, purpura. Head: Normocephalic, Minimal abrasions to the cheek. Patient has no dental pain to the upper and lower teeth.No midline or paracervical tenderness to palpation. Full range of motion Of cervical spine no difficulty. Eye: Normal conjunctiva, no drainage, EOMI. PERRL Ears, Nose, Mouth, and Throat: oral mucosa is moist. Nares patent. Mouth without vesicles. Cardiovascular: Regular Rate and Rhythm, no murmur, gallop, rub, No tenderness to palpation to bilateral anterior, lateral, posterior Chest wall Respiratory: Patient is in no distress, no accessory muscle use, lungs are clear to auscultation, no wheezing, rales or rhonchi Back: non-tender, no CVA tenderness bilaterally to percussion. No CT LS midline pain GI: Obese, no tenderness to palpation, no masses appreciated. No rebound, guarding, or rigidity noted. No distention Musculoskeletal: Patient has full range of motion of all of the extremities Except to the right upper extremity.Patient has moderate tenderness palpation to the mid humerus just by squeezing the soft tissue and muscle tissue.Patient has no tenderness to palpation to the right clavicle, right AC joint. Patient has mild to moderate tenderness and pain with flexion extension abduction of the right shoulder.Patient does not feel there is any pain in the shoulder joint. Patient states that she is having pain to the midshaft of her humerus.Patient has full range of motion of her right elbow with supination pronation flexion extension the right elbow with no pain at all. Full range of motion of right wrist, Right hand. Full range of motion of left upper extremity as well, including left wrist and hand. Otherwise no motor, sensory, or focal neurological deficits Neurological: A&O x4, normal speech Psychiatric: Cooperative Related Data Home Medications ?Medication ?Instructions ?Recorded ?Confirmed apixaban 5 mg tablet (Eliquis) 5 mg PO BID 06/24/23 08/03/23 calcium carbonate (Calcium 500) 500 mg PO DAILY 06/24/23 08/03/23 cetirizine 10 mg tablet (24Hour 10 mg PO DAILY 06/24/23 08/03/23 Allergy) clotrimazole-betamethasone 1 1 applic topical BID PRN irritated 06/24/23 %-0.05 % lotion area esomeprazole magnesium 20 mg 40 mg PO DAILY 06/24/23 08/03/23 capsule,delayed release (Nexium) lutein 10 mg tablet 10 mg PO DAILY 06/24/23 08/03/23 magnesium oxide 400 mg (241.3 mg 400 mg PO BID 06/24/23 08/03/23 magnesium) tablet metoprolol tartrate 25 mg tablet 25 mg PO DAILY PRN PALPITATIONS 06/24/23 08/03/23 naproxen 500 mg tablet 500 mg PO .QOD PRN pain 06/24/23 06/24/23 omega-3 acid ethyl esters 1 gram 2 cap PO BID 06/24/23 08/03/23 capsule sotalol 120 mg tablet 120 mg PO .COMPLEX 06/24/23 08/03/23 amlodipine 2.5 mg tablet 2.5 mg PO DAILY 08/03/23 08/03/23 isosorbide mononitrate 30 mg 30 mg PO BEDTIME 08/03/23 08/03/23 tablet,extended release 24 hr triamterene 37.5 1 tab PO DAILY 08/03/23 08/03/23 mg-hydrochlorothiazide 25 mg tablet Previous Rx's ?Medication ?Instructions ?Recorded hydrocodone 5 mg-acetaminophen 325 1 tab PO Q4H PRN pain #8 tabs 03/21/24 mg tablet methocarbamol 500 mg tablet 500 mg PO Q8H PRN muscle pain #10 03/21/24 tabs Allergies Allergy/AdvReac Type Severity Reaction Status Date / Time No Known Drug Allergies Allergy Verified 06/24/23 03:16 Opioid HPI Opioid Management Most Recent Opioid Data: Last Pain Scale 8 03/21/24 11:41 Last MAR Pain Assessment 03/21/24 11:41 [facility] Medical History (Updated 03/21/24 @ 14:54 by Jonh Briones MD) Sleep apnea ?G47.30 - Sleep apnea, unspecified (ICD-10) Afib ?I48.91 - Unspecified atrial fibrillation (ICD-10) Surgical History (Updated 06/24/23 @ 07:27 by Fiordaliza Dobbs) H/O cataract removal with insertion of prosthetic lens ?Z98.49 - Cataract extraction status, unspecified eye (ICD-10) ?Z96.1 - Presence of intraocular lens (ICD-10) S/P ablation of atrial fibrillation ?Z98.890 - Other specified postprocedural states (ICD-10) ?Z86.79 - Personal history of other diseases of the circulatory system (ICD- 10) Family History (Updated 06/24/23 @ 07:29 by Fiordaliza Dobbs) Mother Family history of myocardial infarction Family history of hypertension Father Family history of hypertension Brother Family history of hypertension Social History Smoking status: Never smoker Exam Constitutional Vital Signs, click to edit/add: Last Vital Signs Temp 98 F 03/21/24 11:03 Pulse 59 L 03/21/24 11:03 Resp 16 03/21/24 11:03 BP 175/86 H 03/21/24 11:03 Pulse Ox 98 03/21/24 11:16 O2 Del Method Room Air 03/21/24 11:16 Course Vital Signs Vital signs: Vital Signs Temperature 98 F 03/21/24 11:03 Pulse Rate 59 L 03/21/24 11:03 Respiratory Rate 16 03/21/24 11:03 Blood Pressure 175/86 H 03/21/24 11:03 Pulse Oximetry 96 06/11/24 11:03 Oxygen Delivery Method Room Air 03/21/24 11:03 Temperature 98 F 03/21/24 11:03 Pulse Rate 59 L 03/21/24 11:03 Respiratory Rate 16 03/21/24 11:03 Blood Pressure 175/86 H 03/21/24 11:03 Pulse Oximetry 98 03/21/24 11:16 Oxygen Delivery Method Room Air 03/21/24 11:16 Medical Decision Making MDM Narrative Medical decision making narrative: CT report and right shoulder x-ray showed no acute abnormalities. I did go over every line of the impression of patient's CT of the brain and explained to herWhat all the impressions were of the brain.Patient was given Tylenol did help with her pain.Patient was given ice for the right shoulder.Sling was not recommended because patient should be moving her right upper extremity to help so the muscles do not get stiff and sore. Patient has no acute abnormality to cervical spine,No acute abnormality to the Right shoulder, right elbow, right wrist and hand.Patient has no ecchymosis or any skin changes to the right upper arm. Education on ice, using Tylenol for pain, patient was sent home with pain medication and muscle relaxers if needed. Patient was given signs and symptoms that may occur tonight and tomorrow was given good strict return precautions to come back to the ER for further evaluation. Patient was very thankful for help.A thorough discussion and education was done on patient CT of the brain report and results.Patient understands to follow-up with PCP. Discharge Plan Discharge Stand Alone Forms: Portal Instructions Chief Complaint: Fall Clinical Impression: Closed head injury without concussion, Contusion of face, Contusion of right elbow, Fall Patient Disposition: Home, Self-Care Time of Disposition Decision: 14:53 Condition: Fair Prescriptions / Home Meds: New methocarbamol 500 mg tablet 500 mg PO Q8H PRN (Reason: muscle pain) Qty: 10 0RF hydrocodone-acetaminophen 5-325 mg tablet 1 tab PO Q4H PRN (Reason: pain) Qty: 8 0RF No Action clotrimazole-betamethasone 1-0.05 % lotion 1 applic TOPICAL BID PRN (Reason: irritated area) Patient Comments: LAST FILLED 08/01 sotalol 120 mg tablet 120 mg PO .COMPLEX Patient Comments: 1 in the AM, 1/2 in afternoon, 1 in evening Rx Instructions: 120 mg orally 1 whole tablet morning and night. Half tablet in the afternoon; magnesium oxide 400 mg (241.3 mg magnesium) tablet 400 mg PO BID naproxen 500 mg tablet 500 mg PO .QOD PRN (Reason: pain) metoprolol tartrate 25 mg tablet 25 mg PO DAILY PRN (Reason: PALPITATIONS) Rx Instructions: NEEDED FOR PALPITATIONS LASTING LONGER THAN 15 MINUTES omega-3 acid ethyl esters 1 gram capsule 2 cap PO BID Eliquis 5 mg tablet 5 mg PO BID calcium carbonate [Calcium 500] 500 mg calcium (1,250 mg) tablet,chewable 500 mg PO DAILY cetirizine [24Hour Allergy] 10 mg tablet 10 mg PO DAILY esomeprazole magnesium [Nexium] 20 mg capsule,delayed release(DR/EC) 40 mg PO DAILY lutein 10 mg tablet 10 mg PO DAILY Rx Instructions: give with meal/snack isosorbide mononitrate 30 mg tablet extended release 24 hr 30 mg PO BEDTIME amlodipine 2.5 mg tablet 2.5 mg PO DAILY triamterene-hydrochlorothiazid 37.5-25 mg tablet 1 tab PO DAILY Print Language: Nauruan Instructions: Head Injury (ED), Contusion in Adults (ED), Arm Pain (ED), Facial Contusion (ED) Additional Instructions: Ice 20 minutes on, 20 minutes off. Do not use heat. Use Tylenol every 4 hours as needed for pain. Follow-up with PCP. Referrals: PURA TSAI [Primary Care Provider] - 1 week Discharge Date/Time: 03/21/24 15:07
== END 2024-03-21 15:07 | disposition home or self-care (01) ==
PROVIDERS: Emergency Provider Emergency Medicine; PCP Family Medicine
DX: S09.8XXA Other specified injuries of head, initial encounter (principal); S50.01XA Contusion of right elbow, initial encounter; S00.83XA Contusion of other part of head, initial encounter; W10.1XXA Fall (on)(from) sidewalk curb, initial encounter; Z79.01 Long term (current) use of anticoagulants; E66.9 Obesity, unspecified; Z68.41 Body mass index [BMI] 40.0-44.9, adult
CPT/HCPCS: 70450; 73030; 99284